=== PATIENT | male | born 1965 | race Caucasian/White ===

== ENCOUNTER 2017-02-01 03:17 | Emergency (ER) | payer BC, OTHER ==
[~2017-02-01] VITALS: Ht 190.5 cm; Wt 140.0 kg
[~2017-02-01 03:17] MED LIST: GLUC500C56 PO; TAB-TAB PO; [UNRECOGNIZED DRUG - REMARK] SSP
[2017-02-01 03:23] VITALS: BP 149/102; PULSE 68; RESP 18; TEMP 98.6; O2SAT 95
[2017-02-01 03:57] VITALS: BP 149/102; PULSE 68; RESP 16; TEMP 98.6; O2SAT 95
[2017-02-01] MEDS ORDERED: PENI500T PO (03:57)
--- NOTE | 2017-02-01 03:58 | PD ---
HPI Chief Complaint: Pain: Acute or Chronic Time Seen by Provider: 03:52 Travel History International Travel<30 days: No Contact w/Intl Traveler<30days: No Traveled to known affect area: No History of Present Illness HPI 51-year-old male presents to the emergency department with gingival pain and swelling to the left maxilla. Patient states symptoms began on Friday. Patient underwent dental cleaning/deep dental cleaning on Friday or Friday of this week and started noticing some irritation but symptoms accelerated on Friday. Patient attempted to reach his dentist however the office was closed reportedly today. Patient took 2 different doses of ibuprofen without symptomatic relief. Patient's had a sensation that swelling of the upper gum of the left upper dentition is worsening and became concerned that he might be developing an abscess or infection. No fever subjective chills. Patient is not diabetic. Patient has had no difficulty with swallowing or speaking. Patient is not noticed any swelling in the submandibular or neck region or any facial swelling. PFSH Past Medical History Narrative Medical Anxiety eye surgery dental surgery tobacco use nursing notes reviewed Cancer: No Diabetes: No Diminished Hearing: No Glaucoma: No Hepatitis: No Hiatal Hernia: No Hypertension: No Thyroid Disease: No Past Surgical History Abdominal Surgery: No Cardiac Surgery: No Ear Surgery: No Endocrine Surgery: No Eye Surgery: Yes (1968 [facility] EYE SURGERY) Genitourinary Surgery: No Gynecologic Surgery: No Oral Surgery: Yes (TONSILLECTOMY 1969) Pacemaker: No Thoracic Surgery: No Social History Alcohol Use: No Tobacco Use: No Substance Use: No Allergies-Medications (Allergen,Severity, Reaction): Coded Allergies: No Known Allergies (Verified , 10/23/09) Reported Meds & Prescriptions Reported Meds & Active Scripts Active Reported Multivitamin (Multivitamins) 1 Tab Tab 1 Tab PO DAILY [Mouth Gargle] 1 SSP BID Glucosamine Sulfate/Chondroitin Sulfate (Glucosamine/Chondroitin) Tab 1 Tab PO TID Review of Systems Except as stated in HPI: all other systems reviewed are Neg General / Constitutional: Positive: Chills, No: Fever HENT: Positive: Dental Difficulties, No: Congestion (subjective), Gingival Bleeding Cardiovascular: No: Chest Pain or Discomfort Respiratory: No: Shortness of Breath Gastrointestinal: Positive: Nausea, No: Vomiting, Abdominal Pain Genitourinary: No: Flank Pain Musculoskeletal: No: Myalgias, Arthralgias Skin: No Rash Neurologic: No: Weakness Psychiatric: No: Anxiety Hematologic/Lymphatic: No: Easy Bruising Physical Exam Narrative GENERAL: Well-developed well-nourished male in no acute distress no respiratory distress SKIN: Warm and dry. HEAD: Normocephalic. EYES: No scleral icterus. No injection or drainage. ENT: Mucous membranes moist airway is patent mild gingival edema noted to the right maxilla area intact dentition mild induration nonfluctuant tender to palpation. No trismus. NECK: Supple, trachea midline. No JVD or lymphadenopathy. CARDIOVASCULAR: Regular rate and rhythm without murmurs, gallops, or rubs. RESPIRATORY: Breath sounds equal bilaterally. No accessory muscle use. GASTROINTESTINAL: Abdomen soft, non-tender, nondistended. MUSCULOSKELETAL: No cyanosis, or edema. BACK: Nontender without obvious deformity. No CVA tenderness. Data Data Last Documented VS Vital Signs Date Time Temp Pulse Resp B/P Pulse Ox O2 Delivery O2 Flow Rate FiO2 02/01/17 03:23 98.6 68 18 149/102 95 MDM Medical Decision Making Medical Screen Exam Complete: Yes Emergency Medical Condition: Yes Medical Record Reviewed: Yes Differential Diagnosis Gingivitis gingival abscess dental abscess facial cellulitis Narrative Course Patient presents with gingival induration and tenderness to palpation after dental cleaning concerning for possible gingival abscess versus dental abscess patient administered first dose of oral antibiotic and will be discharged to home with prescription for oral antibiotic and encouraged to follow-up with his dentist. Diagnosis Primary Impression: Dental abscess Referrals: Dentist 2 days Patient Instructions: General Instructions Additional Instructions: May use topical Orajel per directions avoid overuse May do warm saltwater swishes as needed for symptomatic relief Complete course of antibiotic as prescribed Follow-up with dentist Take acetaminophen and/or ibuprofen per package instructions as needed for fever 100.4F or greater; may use ibuprofen 800 mg as often as every 8 hours as needed for pain associated with inflammation Return to the emergency department for any concerns Med/Other Pt SpecificInfo: Prescription(s) given Scripts Penicillin V Potassium 500 Mg [id number] Mg PO Q6H 7 Days Ref 0 Prov:Yoselyn Chase MD 02/01/17 Disposition: 01 DISCHARGE HOME Condition: Stable Yoselyn Chase MD Feb 01, 2017 03:58
[2017-02-01 04:29] VITALS: BP 165/93; TEMP 98.6
[2017-02-01] MEDS ORDERED: PENICILLIN V POTASSIUM 500 MG TAB PO ONE (04:30)
== END 2017-02-01 04:37 | disposition home or self-care (01) ==
LOC: PHED 03:17
DX: K04.7 Periapical abscess without sinus (principal); R11.0 Nausea
CPT/HCPCS: 99282

== ENCOUNTER 2018-01-10 13:27 | Emergency (ER) | payer BC ==
[~2018-01-10] VITALS: Ht 190.5 cm; Wt 140.0 kg
[~2018-01-10 13:27] MED LIST changes: +PENI500T PO
[2018-01-10 13:30] VITALS: BP 168/87; PULSE 89; RESP 14; TEMP 97.9; O2SAT 95
[2018-01-10] MEDS ORDERED: TETANUS/DIPHTHERIA TOXOID ADULT 0.5 ML VIAL IM ONE (14:00)
[2018-01-10] MEDS ORDERED: ACETAMINOPHEN/HYDROcodone 325 MG/5 MG TAB PO ONE (14:00)
[2018-01-10] MEDS ORDERED: LIDOCAINE HCL 1% 20 ML VIAL INFIL ONE (14:00)
[2018-01-10] MEDS ORDERED: CITA40TA4 PO (14:01)
--- NOTE | 2018-01-10 14:11 | PD ---
HPI Chief Complaint: Injury Time Seen by Provider: 13:48 Travel History International Travel<30 days: No Contact w/Intl Traveler<30days: No Traveled to known affect area: No History of Present Illness HPI 52yo M with no significant PMH presents to the ED with c/o left foot and tib/ fib laceration s/p dropping a round saw that was on. Said he drop it about an hour ago from 1 foot and it hit across his left 2-4 metatarsal. Also an avulsion in left tibia. Pt has a small abrasion in fifth metatarsal of left hand but has no pain. Denies any fever, chest pain, sob, n/v, abdominal pain, focal weakness or numbness. PFSH Past Medical History Depression: Yes Cancer: No Diabetes: No Diminished Hearing: No Glaucoma: No Hepatitis: No Hiatal Hernia: No Hypertension: No Immunizations Current: No Thyroid Disease: No Past Surgical History Abdominal Surgery: No Cardiac Surgery: No Ear Surgery: No Endocrine Surgery: No Eye Surgery: Yes (1968 [facility] EYE SURGERY) Genitourinary Surgery: No Gynecologic Surgery: No Neurologic Surgery: No Oral Surgery: Yes (TONSILLECTOMY 1969) Pacemaker: No Thoracic Surgery: No Other Surgery: Yes Social History Alcohol Use: Yes (SOCIALLY) Tobacco Use: No Substance Use: No Allergies-Medications (Allergen,Severity, Reaction): Coded Allergies: No Known Allergies (Verified Adverse Reaction, Unknown, 01/10/18) Reported Meds & Prescriptions Reported Meds & Active Scripts Active Tylenol (Acetaminophen) 325 Mg Tab 650 Mg PO Q6H PRN Keflex (Cephalexin) 500 Mg Cap 500 Mg PO Q12H 7 Days Penicillin V Potassium 500 Mg Tab 500 Mg PO Q6H 7 Days Reported Citalopram (Citalopram Hydrobromide) 40 Mg Tab 40 Mg PO DAILY Multivitamin (Multivitamins) 1 Tab Tab 1 Tab PO DAILY [Mouth Gargle] 1 SSP BID Glucosamine Sulfate/Chondroitin Sulfate (Glucosamine/Chondroitin) Tab 1 Tab PO TID Review of Systems Except as stated in HPI: all other systems reviewed are Neg Physical Exam Narrative GEN: 52yo M in moderate distress. SKIN: warm and dry. HEAD: Normocephalic, atraumatic. CV: S1, S2. Lungs: CTA B/L, equal breath sounds. Abd: soft, NT/ND. No rebound tenderness or guarding. Ext: LLE: +5cm avulsion in left tibia, superficial. Left foot: +6.5cm Deep laceration 2-4 metatarsal. Able to fully flex all digits. Extension limited in 3rd metatarsal. DP 2+. Sensation intact. Cap refill <2sec. Neuro: No focal neurologic deficits. Data Data Last Documented VS Vital Signs Date Time Temp Pulse Resp B/P (MAP) Pulse Ox O2 Delivery O2 Flow Rate FiO2 01/10/18 17:28 01/10/18 13:30 97.9 89 14 95 Room Air Orders Orders Lidocaine 1% Inj (Xylocaine 1% Inj) (01/10/18 14:00) Tetanus/Diphtheria Tox Adult (Tetanus/Di (01/10/18 14:00) Acetamin-Hydrocod 325-5 Mg ([place] 5-325 (01/10/18 14:00) Tibia/Fibula (Ap/Lat) (01/10/18 ) Foot, Limited (2vws) (01/10/18 ) Cephalexin (Keflex) (01/10/18 17:00) Ed Discharge Order (01/10/18 17:14) [facility] Medical Decision Making Medical Screen Exam Complete: Yes Emergency Medical Condition: Yes Differential Diagnosis Fracture vs. tendon laceration vs. deep laceration Narrative Course 52yo M with deep laceration to dorsum of left foot. Xray left foot showed normal examination. Xray of tib/fib normal. I discussed case with zoogler Dr. Sharma. He offered either stay overnight and he will see him or follow up with his clinic. Wants to cover with antibiotics. Pt wants to follow up with podiatry as outpatient and is very reliable. There was limited extension on third metatarsal and pt understands there may be tendon injury. Laceration repaired by my PA. Pt given tetanus, lortab and keflex. Return precautions given. Diagnosis Primary Impression: Laceration of foot Qualified Codes: S91.312A - Laceration without foreign body, left foot, initial encounter Referrals: Aftab Sharma DPM 1 day Patient Instructions: General Instructions Departure Forms: Tests/Procedures Additional Instructions: Please follow up with Dr. Sharma in 1-2 days. Return tot he ED if symptoms worsen. Med/Other Pt SpecificInfo: Prescription(s) given Scripts Acetaminophen (Tylenol) 325 Mg Tab 650 MG PO Q6H Y for PAIN SCALE 1 TO 4, #20 TAB 0 Refills Prov: Michelle Walker DO 01/10/18 Cephalexin (Keflex) 500 Mg Cap 500 MG PO Q12H for Infection for 7 Days, #14 CAP 0 Refills Prov: Michelle Walker DO 01/10/18 Disposition: 01 DISCHARGE HOME Condition: Stable Michelle Walker DO Jan 10, 2018 14:11
--- NOTE | 2018-01-10 14:33 | RADRPT ---
EXAM DATE/TIME: 01/10/2018 14:17 [facility] COMPARISON: No previous studies available for comparison. INDICATIONS : Patient dropped circular burr grinder on left foot. Laceration to 2nd-5th MTPJs. MEDICAL HISTORY : None. SURGICAL HISTORY : None. ENCOUNTER: Initial ACUITY: 1 day PAIN SCORE: 5/10 LOCATION: Left Foot FINDINGS: Two view examination of the left foot demonstrates no soft tissue swelling, dislocation, or fracture. The calcaneus is intact. Bony mineralization is normal. There is heel spur present. CONCLUSION: Normal examination for a patient of this age. Catrachito Whitmore MD on January 10, 2018 at 14:32 Board Certified Radiologist. This report was verified electronically.
--- NOTE | 2018-01-10 14:33 | RADRPT ---
EXAM DATE/TIME: 01/10/2018 14:15 [facility] COMPARISON: No previous studies available for comparison. INDICATIONS : Patient dropped circular saw on left tib/fib. Abration to mid shaft left tib/fib. MEDICAL HISTORY : None. SURGICAL HISTORY : None. ENCOUNTER: Initial ACUITY: 1 day PAIN SCORE: 5/10 LOCATION: Left Tib/Fib FINDINGS: Two view examination of the left tibia demonstrates no evidence of fracture or dislocation. Bony min eralization is normal. The soft tissue structures are intact. CONCLUSION: Normal examination for a patient of this age. Catrachito Whitmore MD on January 10, 2018 at 14:31 Board Certified Radiologist. This report was verified electronically.
--- NOTE | 2018-01-10 16:44 | PD ---
Physical Exam Time Seen by Provider: 16:39 Narrative I was asked to repair the laceration to the left briseno and the dorsal aspect of the left foot. Data Data Last Documented VS Vital Signs Date Time Temp Pulse Resp B/P (MAP) Pulse Ox O2 Delivery O2 Flow Rate FiO2 01/10/18 13:30 97.9 89 14 168/87 (114) 95 Room Air Orders Orders Lidocaine 1% Inj (Xylocaine 1% Inj) (01/10/18 14:00) Tetanus/Diphtheria Tox Adult (Tetanus/Di (01/10/18 14:00) Acetamin-Hydrocod 325-5 Mg ([place] 5-325 (01/10/18 14:00) Tibia/Fibula (Ap/Lat) (01/10/18 ) Foot, Limited (2vws) (01/10/18 ) MDM Supervised Visit with GIO: No Narrative Course I was asked to repair the laceration to the left briseno and the dorsal aspect of the left foot. See my procedure note for laceration repair. Procedures Procedure Narrative LACERATION LOCATION: Left briseno LENGTH: 5 cm NUMBER OF STITCHES/EDWARD: 10 edward REPAIR: The area of the laceration was prepped with Betadine and sterilely draped. The laceration was infiltrated with 1% lidocaine. The wound was copiously irrigated and explored without evidence of foreign body , tendon injury or neurovascular injury. The wound was closed using edward. This was a single layer repair. A sterile dressing was applied. The patient was advised to keep the dressing clean and dry. Patient tolerated the procedure well. LACERATION LOCATION: Dorsal aspect of left foot just below and along the base of the second , third, fourth toes LENGTH: 6.5cm NUMBER OF STITCHES/EDWARD: 12 simple interrupted sutures REPAIR: The area of the laceration was prepped with Betadine and sterilely draped. The laceration was infiltrated with 1% lidocaine. The wound was copiously irrigated and explored without evidence of foreign body or neurovascular injury; extensor tendon laceration noted to the third toe. The wound was closed using stitches. This was a single layer repair. A sterile dressing was applied. The patient was advised to keep the dressing clean and dry. Patient tolerated the procedure well. Purnima Sibley Jan 10, 2018 16:44
[2018-01-10] MEDS ORDERED: CEPHALEXIN MONOHYDRATE 500 MG CAP PO ONE (17:00)
[2018-01-10] MEDS ORDERED: CEPH-460 PO (17:14)
[2018-01-10] MEDS ORDERED: TYLE325T PO (17:14)
== END 2018-01-10 17:31 | disposition home or self-care (01) ==
LOC: NEPD 13:27
DX: S91.312A Laceration without foreign body, left foot, initial encounter (principal); W31.2XXA Contact with powered woodworking and forming machines, initial encounter; Z23 Encounter for immunization
CPT/HCPCS: 12004; 73590; 73620; 90471; 90714